=== PATIENT | male | born 1965 | race Caucasian/White ===

== ENCOUNTER 2017-12-06 12:10 | Emergency (ER) | payer SELFPAY ==
[~2017-12-06] VITALS: Ht 172.7 cm; Wt 95.5 kg
[~2017-12-06 12:10] MED LIST: DOXYCYCLINE 10100 MG PO; NO HOME MEDICATIONS; VENTOLIN0.09 MG IH
[2017-12-06 12:12] VITALS: BP 139/88; TEMP 98.1
[2017-12-06 13:10] VITALS: PULSE 90
== END 2017-12-06 13:12 | disposition home or self-care (01) ==
LOC: COL.ER 12:10
DX: S80.02XA Contusion of left knee, initial encounter (principal); F17.210 Nicotine dependence, cigarettes, uncomplicated; V20.4XXA Motorcycle driver injured in collision with pedestrian or animal in traffic accident, initial encounter; Y92.410 Unspecified street and highway as the place of occurrence of the external cause